=== PATIENT | female | born 1990 | race Caucasian/White ===

== ENCOUNTER 2023-07-11 08:32 | Outpatient (CLI) | payer SELFPAY | END 2023-07-11 08:33 | disposition home or self-care (01) | PROVIDERS: Visit Provider Obstetrics & Gynecology | DX: N93.9 Abnormal uterine and vaginal bleeding, unspecified (principal); Z13.220 Encounter for screening for lipoid disorders | CPT/HCPCS: 80061; 82947; 83525; 84146; 84270; 84402; 84403; 84443 ==